=== PATIENT | male | born 1940 | race Caucasian/White ===

== ENCOUNTER 2020-03-05 13:16 | Emergency (ER) | payer OTHER, MEDICARE ==
[2020-03-05 13:27] VITALS: BP 134/70
[2020-03-05 14:11] LABS: BASO % 0.5 % (0.0-1.0); EOS # 0.1 10*3/uL (0.0-0.4); EOS % 1.6 % (1.0-4.0); HEMATOCRIT 35.3 % (42.0-52.0); LYMPH # 0.5 10*3/uL (1.3-4.4); LYMPH % 8.4 % (27.0-41.0); MEAN CORPUSCULAR HGB 28.9 pg (27.0-31.0); MEAN CORPUSCULAR HGB CONC 32.9 g/dl (33.0-37.0); MEAN PLATELET VOLUME 9.8 fl (9.6-12.3); MONO # 0.9 10*3/uL (0.1-1.0); MONO % 15.4 % (3.0-9.0); NEUT # 4.2 10*3/uL (2.3-7.9); NEUT % 73.7 % (47.0-73.0); PLATELET COUNT AUTOMATED 171 10*3/uL (130-400); RED BLOOD COUNT 4.01 10*6/uL (4.50-5.90); WHITE BLOOD COUNT 5.7 10*3/uL (4.8-10.8)
[2020-03-05 14:21] LABS: ACT PARTIAL THROMBO TIME 43.5 SECONDS (20.0-32.1); INTERNATIONAL NORM RATIO 3.4 (2.0-3.5)
[2020-03-05 14:30] LABS: ALBUMIN 3.1 gm/dl (3.1-4.5); ALKALINE PHOSPHATASE 146 U/L (45-117); BUN 12 mg/dl (7-24); CHLORIDE 99 mmol/L (98-107); CREATININE 0.71 mg/dL (0.70-1.30); POTASSIUM 4.1 mmol/L (3.5-5.1); SGOT/AST 14 IU/L (3-35); SGPT/ALT 25 U/L (12-78); SODIUM 132 mmol/L (136-145); TOTAL PROTEIN 6.1 gm/dL (6.4-8.2)
== END 2020-03-05 16:41 | disposition home or self-care (01) ==
LOC: ED 13:16
PROVIDERS: Emergency Medicine
DX: S20.212A Contusion of left front wall of thorax, initial encounter (principal); M54.2 Cervicalgia; R10.9 Unspecified abdominal pain; I48.91 Unspecified atrial fibrillation; E78.00 Pure hypercholesterolemia, unspecified; I10 Essential (primary) hypertension; Z88.0 Allergy status to penicillin; Z91.040 Latex allergy status; V43.52XA Car driver injured in collision with other type car in traffic accident, initial encounter; Y93.89 Activity, other specified; Y92.89 Other specified places as the place of occurrence of the external cause; Y99.8 Other external cause status

== ENCOUNTER 2020-03-11 18:42 | Inpatient (IN) | payer MEDICARE ==
[~2020-03-11] VITALS: Ht 177.8 cm; Wt 78.9 kg
[2020-03-11 18:45] VITALS: BP 117/64
[2020-03-11 20:00] VITALS: BP 132/70
[2020-03-11 20:10] LABS: BASO % 0.3 % (0.0-1.0); EOS # 0.1 10*3/uL (0.0-0.4); EOS % 1.3 % (1.0-4.0); HEMATOCRIT 35.9 % (42.0-52.0); LYMPH # 0.4 10*3/uL (1.3-4.4); LYMPH % 4.8 % (27.0-41.0); MEAN CELL VOLUME 90.7 fl (80.0-94.0); MEAN CORPUSCULAR HGB 29.3 pg (27.0-31.0); MEAN CORPUSCULAR HGB CONC 32.3 g/dl (33.0-37.0); MEAN PLATELET VOLUME 10.2 fl (9.6-12.3); MONO # 0.7 10*3/uL (0.1-1.0); MONO % 8.9 % (3.0-9.0); NEUT # 6.2 10*3/uL (2.3-7.9); NEUT % 83.5 % (47.0-73.0); PLATELET COUNT AUTOMATED 162 10*3/uL (130-400); RED BLOOD COUNT 3.96 10*6/uL (4.50-5.90); RED CELL DISTRI WIDTH 15.2 % (0-14.5); WHITE BLOOD COUNT 7.4 10*3/uL (4.8-10.8)
[2020-03-11 20:21] LABS: ACT PARTIAL THROMBO TIME 35.3 SECONDS (20.0-32.1); INTERNATIONAL NORM RATIO 2.3 (2.0-3.5)
[2020-03-11 20:27] LABS: ALBUMIN 2.9 gm/dl (3.1-4.5); ALKALINE PHOSPHATASE 140 U/L (45-117); BUN 17 mg/dl (7-24); CHLORIDE 105 mmol/L (98-107); CPK 77 U/L (39-308); CREATININE 0.73 mg/dL (0.70-1.30); POTASSIUM 4.2 mmol/L (3.5-5.1); SGOT/AST 21 IU/L (3-35); SGPT/ALT 36 U/L (12-78); SODIUM 138 mmol/L (136-145); TOTAL PROTEIN 6.2 gm/dL (6.4-8.2)
[2020-03-11 20:29] LABS: TROPONIN I < 0.015 ng/ml (<0.045)
--- NOTE | 2020-03-11 21:20 | NUR ---
TRIED TO AMBULATE PT PER DR. MERRITT'S ORDER. PT. ABLE TO STAND BUT UNABLE TO AMBULATE.
[2020-03-11 22:00] VITALS: BP 149/76
[2020-03-11 22:10] VITALS: BP 132/70
--- NOTE | 2020-03-11 22:10 | NUR ---
Time: 2209 A 79 year old MALE admitted to 5E under services of TAYA VAZQUEZ DO. Pt. arrived via stretcher from ER. Chief complaint: FALL. NO OPEN WOUNDS. CONTUSION TO RIGHT FLANK. NAKIA GOMEZ
--- NOTE | 2020-03-11 22:26 | NUR ---
NORCO ADMINISTERED FOR PT C/O 04/06 RIGHT HIP PAIN. WILL MONITOR AND REASSESS.
[2020-03-11] MEDS ORDERED: OXYBUTYNIN5 MG PO (22:36)
[2020-03-11] MEDS ORDERED: ACETAMINOPHEN COD (22:36)
[2020-03-11] MEDS ORDERED: METOPROLOL25 MG PO (22:36)
[2020-03-11] MEDS ORDERED: METOCLOPRAMIDE10 M1 PO (22:37)
[2020-03-11] MEDS ORDERED: ANORO ELLIPTA1 EACH INH (22:37)
[2020-03-11] MEDS ORDERED: POTASSIUM CHLO20 ME4 PO (22:38)
[2020-03-11] MEDS ORDERED: ESCITALOPRAM OX10 MG PO (22:38)
[2020-03-11] MEDS ORDERED: OMEPRAZOLE MAGN20 MG PO (22:39)
[2020-03-11] MEDS ORDERED: Carafate1 GM PO (22:39)
[2020-03-11] MEDS ORDERED: LISINOPRIL20 MG PO (22:39)
[2020-03-11] MEDS ORDERED: SIMVASTATIN40 MG PO (22:40)
--- NOTE | 2020-03-11 23:25 | NUR ---
PT STATES NORCO WAS EFFECTIVE IN RELIEVING PAIN TO A 5, BUT IS STILL COMPLAINING OF SIGNIFICANT PAIN. WILL ADMINISTER MORPHINE AT THIS TIME.
[2020-03-12] VITALS: BP 138/76
--- NOTE | 2020-03-12 00:20 | NUR ---
PT ASLEEP AT THIS TIME. NO S/S OF DISTRESS NOTED. RESPIRATIONS EASY AND NONLABORED.
[2020-03-12 06:09] LABS: BASO % 0.5 % (0.0-1.0); EOS # 0.2 10*3/uL (0.0-0.4); EOS % 1.7 % (1.0-4.0); HEMATOCRIT 32.4 % (42.0-52.0); LYMPH # 0.4 10*3/uL (1.3-4.4); MEAN CELL VOLUME 89.3 fl (80.0-94.0); MEAN CORPUSCULAR HGB 28.9 pg (27.0-31.0); MEAN CORPUSCULAR HGB CONC 32.4 g/dl (33.0-37.0); MEAN PLATELET VOLUME 10.7 fl (9.6-12.3); MONO # 0.7 10*3/uL (0.1-1.0); MONO % 8.4 % (3.0-9.0); NEUT # 7.4 10*3/uL (2.3-7.9); NEUT % 83.9 % (47.0-73.0); PLATELET COUNT AUTOMATED 140 10*3/uL (130-400); RED BLOOD COUNT 3.63 10*6/uL (4.50-5.90); RED CELL DISTRI WIDTH 15.2 % (0-14.5); WHITE BLOOD COUNT 8.8 10*3/uL (4.8-10.8)
[2020-03-12 06:23] LABS: INTERNATIONAL NORM RATIO 2.6 (2.0-3.5)
[2020-03-12 06:26] LABS: BUN 14 mg/dl (7-24); CHLORIDE 105 mmol/L (98-107); POTASSIUM 3.6 mmol/L (3.5-5.1); SODIUM 135 mmol/L (136-145)
[2020-03-12 06:28] LABS: CREATININE 0.57 mg/dL (0.70-1.30)
[2020-03-12 08:00] VITALS: BP 142/79
--- NOTE | 2020-03-12 08:00 | NUR ---
MORNING ASSESSMENT COMPLETED. NO COMPLAINTS VOICED AT THIS TIME.
[2020-03-12 12:00] VITALS: BP 88/68
[2020-03-12 12:34] VITALS: BP 100/58
[2020-03-12 16:00] VITALS: BP 102/62
[2020-03-12 20:00] VITALS: BP 148/65
--- NOTE | 2020-03-12 20:08 | NUR ---
PATIENT HAS C/O 6/10 PAIN TO CHEST AND RT SIDE/HIP, GIVEN MORPHINE PER REQUEST PER PRN ORDER, BP 140/58
--- NOTE | 2020-03-12 21:00 | NUR ---
MORPHINE EFFECTIVE FOR PAIN PER PT
[2020-03-13] VITALS: BP 153/75
--- NOTE | 2020-03-13 00:17 | NUR ---
MORPHINE GIVEN FOR C/O PAIN TO RT HIP AND RT HEEL, HEELS ELEVATED AND PATIENT REPOSITIONED IN BED. STATES HEEL IS ALREADY FEELING BETTER, HEEL IS PINK BUT NOT MUSHY/NO OPEN AREA. CALL LIGHT IN REACH
--- NOTE | 2020-03-13 01:00 | NUR ---
PATIENT RESTING WITH EYES CLOSED, EASY AND REGULAR RESPIRATIONS ON 2L NC; MORPHINE APPEARS EFFECTIVE.
[2020-03-13 06:34] LABS: BUN 12 mg/dl (7-24); CHLORIDE 102 mmol/L (98-107); CREATININE 0.55 mg/dL (0.70-1.30); POTASSIUM 3.6 mmol/L (3.5-5.1); SODIUM 133 mmol/L (136-145)
[2020-03-13 06:51] LABS: INTERNATIONAL NORM RATIO 2.5 (2.0-3.5)
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
[2020-03-13 08:00] VITALS: BP 146/61
--- NOTE | 2020-03-13 08:00 | NUR ---
PHYSICAL THERAPY Screen and PT orders received. Will follow. Thank you. Ramsey Quevedo SPT Isidra Brenner PT
--- NOTE | 2020-03-13 08:07 | NUR ---
Nursing screen and occupational therapy order received. Will follow up with patient for completion of an OT evaluation. Thank you. Lulu Macias, OTR/L
--- NOTE | 2020-03-13 09:28 | NUR ---
Occupational Therapy evaluation completed on five with full evaluation to follow. Recommend occupational therapy per plan of care and SNF upon discharge. Thank you for this referral. Lulu Macias OTR/L
--- NOTE | 2020-03-13 09:29 | NUR ---
PHYSICAL THERAPY Physical Therapy Observation evaluation completed on 5E with full evaluation to follow. Recommend physical therapy per plan of care and SNF upon discharge. Thank you for this referral. Cheyenne Diez,PT,DPT
--- NOTE | 2020-03-13 09:30 | NUR ---
PT IN TO WORK WITH PT.
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
--- NOTE | 2020-03-13 10:48 | NUR ---
Attempted to reach daughterKaryn, regarding discharge planning with no success. Left voicemail. Awaiting return call.
--- NOTE | 2020-03-13 11:40 | NUR ---
COVID TEST WILL BE REQUIRED FOR ADMISSION TO SNF. AWAITING RETURN CALL FROM PATIENTS FAMILY ON WHICH SNF THEY WOULD LIKE TO REFERRAL TO BE SENT.
[2020-03-13 12:00] VITALS: BP 122/55
--- NOTE | 2020-03-13 12:42 | NUR ---
DONATIONS ATTENDANT RECEIVED CALL FROM STATING SHE HAD JUST SPOKEN TO THE PATIENTS DAUGHTER AND DAUGHTER REQUESTED A CALL BACK. DONATIONS ATTENDANT CALLED PATIENTS DAUGHTER JOVITA AND EXPLAINED THE RECOMMENDATION FROM PT/OT. SHE IS AGREEABLE. DONATIONS ATTENDANT PROVIDED HER WITH OPTIONS FOR SNF. SHE AGREED TO HAVE REFERRAL SENT TO [facility] FOR REVIEW. DONATIONS ATTENDANT FAXED REFERRAL TO [facility]. PATIENT WILL NEED TO BE ACCEPTED. PATIENT WILL NEED COVID TESTING. WILL NEED 3RD NIGHT STAY (03/14/2020).
--- NOTE | 2020-03-13 13:23 | NUR ---
NORCO ADMINISTERED FOR PT C/O RIGHT HIP AND SHOULDER PAIN RATED A 6/10. WILL CONTINUE TO MONITOR AND REASSESS.
--- NOTE | 2020-03-13 13:54 | NUR ---
PT LAYING IN BED WITH EYES CLOSED. RESPIRATIONS EASY AND NONLABORED. NO DISTRESS NOTED. NORCO APPEARS EFFECTIVE.
--- NOTE | 2020-03-13 15:15 | NUR ---
CRIME SCENE ANALYST RECEIVED CALL FROM STATING SHE HAD JUST SPOKEN TO THE PATIENTS DAUGHTER AND DAUGHTER REQUESTED A CALL BACK. CRIME SCENE ANALYST CALLED PATIENTS DAUGHTER JOVITA AND EXPLAINED THE RECOMMENDATION FROM PT SHE IS AGREEABLE. CRIME SCENE ANALYST PROVIDED HER WITH OPTIONS FOR SNF. SHE AGREED TO [facility] REFERRAL SENT TO [facility] FOR REVIEW. CRIME SCENE ANALYST FAXED REFERRAL TO [facility]. PATIENT WILL NEED TO BE ACCEPTED. PATIENT WILL NEED COVID TESTING. WILL NEED 3 NIGHT INPATIENT STAY. PATIENT CAN ADMIT TO ON 03/16/2020.
[2020-03-13 16:00] VITALS: BP 112/57
--- NOTE | 2020-03-13 19:53 | NUR ---
MEDICATED WITH NORCO FOR C/O RIGHT HIP/RIGHT SIDE PAIN RATED A 6/10.
[2020-03-13 20:00] VITALS: BP 111/74
--- NOTE | 2020-03-13 20:30 | NUR ---
RESTING IN BED; VOICES NO FURTHER C/O PAIN AT THIS TIME. NORCO EFFECTIVE. CALL LIGHT WITHIN REACH. BED ALARM ON.
[2020-03-14] VITALS: BP 122/60
--- NOTE | 2020-03-14 02:11 | NUR ---
MEDICATED WITH NORCO FOR C/O PAIN.
--- NOTE | 2020-03-14 03:15 | NUR ---
RESTING IN BED WITH EYES CLOSED; NORCO APPARENTLY EFFECTIVE.
[2020-03-14 06:22] LABS: BASO % 0.3 % (0.0-1.0); EOS # 0.3 10*3/uL (0.0-0.4); EOS % 4.4 % (1.0-4.0); HEMATOCRIT 28.8 % (42.0-52.0); LYMPH # 0.4 10*3/uL (1.3-4.4); LYMPH % 5.4 % (27.0-41.0); MEAN CELL VOLUME 89.4 fl (80.0-94.0); MEAN CORPUSCULAR HGB 29.2 pg (27.0-31.0); MEAN CORPUSCULAR HGB CONC 32.6 g/dl (33.0-37.0); MEAN PLATELET VOLUME 10.9 fl (9.6-12.3); MONO # 0.9 10*3/uL (0.1-1.0); MONO % 13.1 % (3.0-9.0); NEUT # 5.4 10*3/uL (2.3-7.9); NEUT % 76.4 % (47.0-73.0); PLATELET COUNT AUTOMATED 115 10*3/uL (130-400); RED BLOOD COUNT 3.22 10*6/uL (4.50-5.90); RED CELL DISTRI WIDTH 14.9 % (0-14.5); WHITE BLOOD COUNT 7.1 10*3/uL (4.8-10.8)
[2020-03-14 06:35] LABS: BUN 12 mg/dl (7-24); CHLORIDE 101 mmol/L (98-107); POTASSIUM 3.7 mmol/L (3.5-5.1); SODIUM 133 mmol/L (136-145)
[2020-03-14 08:00] VITALS: BP 128/66
--- NOTE | 2020-03-14 11:13 | NUR ---
DR. ORDAZ REQUESTED FOR OXYGEN TO BE REMOVED, AND MONITOR PATIENT ON ROOM AIR. REMOVED 2 LITERS OXYGEN, PT IN TO SEE PATIENT. WILL CONTINUE TO MONITOR
--- NOTE | 2020-03-14 11:25 | NUR ---
PHYSICAL THERAPY Patient seen this am 1:1 for therapy visit and was supine in bed upon therapist arrival. Patient identified by name / and reports 7/10 R hip pain. Patient originally presented with continuos O2-2L, however nurse arrived and removed O2 at this time stating he did not need to use it anymore. Patient was very pleasant this morning while transfering supine to sit EOB with MOD A, tolerating several minutes static EOB sit, SBA x 1. Patient completed sit to stand transfer, MIN A with use of wh walker standing support, performing SPT to bedside chair, including several forward / side steps, MIN A. Patient recorded SpO2 89%, HR 92 bpm following SPT and after brief seated rest returned to 93%, HR 85 bpm. Patient also instructed / performed seated B LE therex, all planes x 10 reps each to increase LE strength and remained in bedside chair with call light, tray table, telephone, body alarm for safety. Will continue per POC as tolerated, total treatment time 19 minutes. Chepe Gloria, VEHICLE DYNAMICS ENGINEER
--- NOTE | 2020-03-14 11:53 | NUR ---
PT COMPLAIN OF PAIN IN HIP, NORCO GIVEN. WILL MONITOR FOR EFFECTIVENESS.
[2020-03-14 12:00] VITALS: BP 109/56
--- NOTE | 2020-03-14 12:49 | NUR ---
Pt was seen for 15 minutes in OT beginning with supine to EOB with Max A. Sit to stands at EOB with Min A followed by transfer to bedside chair with Min A. No complaints & bed alarm activated for safety. All needs within reach. Continue with OT POC. Pat CACERES
[2020-03-14 16:00] VITALS: BP 101/42
[2020-03-14 20:00] VITALS: BP 121/62
--- NOTE | 2020-03-14 20:10 | NUR ---
NORCO ADMINISTERED FOR PT C/O 02/03 PAIN IN THE RIGHT SHOULDER/HIP R/T FALL A COUPLE OF DAYS AGO. PT STATES HE IS SORE. WILL MONITOR AND REASSESS.
--- NOTE | 2020-03-14 20:40 | NUR ---
PT ASLEEP AT THIS TIME. NO S/S OF DISTRESS. NORCO APPEARS EFFECTIVE.
--- NOTE | 2020-03-14 23:33 | NUR ---
24 HOUR CHART CHECK COMPLETE.
[2020-03-15] VITALS: BP 105/58
--- NOTE | 2020-03-15 01:54 | NUR ---
NORCO ADMINISTERED FOR PT C/O 01/04 RIGHT SHOULDER AND HIP PAIN. WILL MONITOR AND REASSESS.
--- NOTE | 2020-03-15 02:30 | NUR ---
PT ASLEEP AT THIS TIME. NORCO APPEARS EFFECTIVE.
[2020-03-15 06:24] LABS: BASO % 0.5 % (0.0-1.0); EOS # 0.3 10*3/uL (0.0-0.4); EOS % 5.3 % (1.0-4.0); LYMPH # 0.4 10*3/uL (1.3-4.4); MEAN CELL VOLUME 89.7 fl (80.0-94.0); MEAN CORPUSCULAR HGB 29.5 pg (27.0-31.0); MEAN CORPUSCULAR HGB CONC 32.9 g/dl (33.0-37.0); MEAN PLATELET VOLUME 10.5 fl (9.6-12.3); MONO # 0.8 10*3/uL (0.1-1.0); MONO % 13.8 % (3.0-9.0); NEUT # 4.4 10*3/uL (2.3-7.9); NEUT % 72.9 % (47.0-73.0); PLATELET COUNT AUTOMATED 129 10*3/uL (130-400); RED BLOOD COUNT 3.12 10*6/uL (4.50-5.90); RED CELL DISTRI WIDTH 14.8 % (0-14.5)
[2020-03-15 06:32] LABS: BUN 15 mg/dl (7-24); CHLORIDE 101 mmol/L (98-107); CREATININE 0.63 mg/dL (0.70-1.30); POTASSIUM 3.6 mmol/L (3.5-5.1); SODIUM 135 mmol/L (136-145)
[2020-03-15 06:50] LABS: INTERNATIONAL NORM RATIO 2.3 (2.0-3.5)
[2020-03-15 08:00] VITALS: BP 154/70
--- NOTE | 2020-03-15 09:10 | NUR ---
PHYSICAL THERAPY Patient seen this am 1:1 for therapy visit and was supine in bed upon therapist arrival. Patient identified by name / and reports 7/10 R hip / shoulder pain. Patient was pleasat this morning, transfering supine to sit EOB with MOD A x 1, demonstrating increased difficulty with R LE abduction during transfer. Patient completed sit to stand transfer, MIN A, then ambulated with use of wh walker, MIN A, 35'x 1, demonstrating very slow, cautious, "step to" gait pattern. Patient also very unsteady during 180 degree turn around and reported feeling mild light headedness. Patient instructed to take brief standing rest break upon return to bedside chair for < 20 seconds and was able to safely complete all gait ex this session. Patient remained in bedside chair with increased fatigue, call light, tray table, telephone and body alarm for safety. Will continue per POC as tolerated, total treatment time 16 minutes. Chepe Gloria, GENERAL MANAGER IN TRAINING
--- NOTE | 2020-03-15 09:27 | NUR ---
PT REQUESTED PO NORCO PER PRN ORDER FOR C/O RIGHT HIP PAIN. RATES PAIN 8/10. WILL MONITOR EFFECTIVENESS.
--- NOTE | 2020-03-15 10:27 | NUR ---
NORCO EFFECTIVE PER PT. WILL CONTINUE TO MONITOR.
--- NOTE | 2020-03-15 10:50 | NUR ---
IN TO SEE PATIENT.
--- NOTE | 2020-03-15 11:00 | NUR ---
CM in to see patient. No new needs or request at this time. When medically stable and his 3 night inpatient stay is met (tomorrow) [facility]. call worker person following for referral.
[2020-03-15 12:00] VITALS: BP 106/56
--- NOTE | 2020-03-15 12:36 | NUR ---
Pt was seen with OT x 23 minutes beginning with sit to stand from recliner required CGA & a cue for hand placement. Fxl mobility throughout room & to bathroom requiring CGA due to hx of falls. Transfer to commode CGA & Max A with toileting hygiene. Grooming with set up to end session. [address] & call light within reach. Continue with OT POC. Pat CONKLIN/Britton
--- NOTE | 2020-03-15 15:06 | NUR ---
PT REQUESTED PO NORCO PER PRN ORDER FOR C/O RIGHT HIP PAIN. RATES PAIN 02/03. WILL MONITOR EFFECTIVENESS. CALL LIGHT WITHIN REACH.
[2020-03-15 16:00] VITALS: BP 107/59
--- NOTE | 2020-03-15 16:06 | NUR ---
NORCO RELIEVING PAIN PER PT. WILL CONTINUE TO MONITOR.
[2020-03-15 20:00] VITALS: BP 107/49
--- NOTE | 2020-03-15 21:27 | NUR ---
NORCO ADMINISTERED FOR PT C/O RIGHT HIP/KNEE PAIN RATED A 8/10. WILL CONTINUE TO MONITOR AND REASSESS.
--- NOTE | 2020-03-15 22:20 | NUR ---
PT RESTING AT THIS TIME. NO S/S OF DISTRESS NOTED.
[2020-03-16] VITALS: BP 108/40
[2020-03-16 06:28] LABS: BUN 14 mg/dl (7-24); CHLORIDE 101 mmol/L (98-107); CREATININE 0.57 mg/dL (0.70-1.30); POTASSIUM 3.5 mmol/L (3.5-5.1); SODIUM 136 mmol/L (136-145)
[2020-03-16 06:30] LABS: INTERNATIONAL NORM RATIO 2.4 (2.0-3.5)
[2020-03-16 06:33] LABS: BASO % 0.6 % (0.0-1.0); EOS # 0.2 10*3/uL (0.0-0.4); EOS % 4.1 % (1.0-4.0); HEMATOCRIT 28.1 % (42.0-52.0); LYMPH # 0.4 10*3/uL (1.3-4.4); LYMPH % 7.6 % (27.0-41.0); MEAN CELL VOLUME 89.5 fl (80.0-94.0); MEAN CORPUSCULAR HGB 29.6 pg (27.0-31.0); MEAN CORPUSCULAR HGB CONC 33.1 g/dl (33.0-37.0); MONO # 0.8 10*3/uL (0.1-1.0); NEUT # 3.4 10*3/uL (2.3-7.9); NEUT % 70.1 % (47.0-73.0); PLATELET COUNT AUTOMATED 139 10*3/uL (130-400); RED BLOOD COUNT 3.14 10*6/uL (4.50-5.90); WHITE BLOOD COUNT 4.9 10*3/uL (4.8-10.8)
--- NOTE | 2020-03-16 07:57 | NUR ---
PATIENTS COVID HAS RETURNED IF MEDICALLY STABLE PATIENT CAN DISCHARGE TO [facility] TODAY.
[2020-03-16 08:00] VITALS: BP 150/64
--- NOTE | 2020-03-16 08:51 | NUR ---
GEOSCIENCE SPECIALIST COMPLETED HENS.
--- NOTE | 2020-03-16 09:49 | NUR ---
NORCO GIVEN PER PRN ORDER FOR C/O RIGHT HIP PAIN. RATES PAIN 8/10. WILL MONITOR EFFECTIVENESS.
--- NOTE | 2020-03-16 10:37 | NUR ---
IN TO SEE PATIENT.
--- NOTE | 2020-03-16 10:41 | NUR ---
PHYSICAL THERAPY PT SUPINE IN BED UPON ARRIVAL. PT IDENTIFIED BY NAME AND . PT AGREED TO ALL PHYSICAL THERAPY TREATMENT THIS VISIT. PT PERFORMED SUPINE TO SIT WITH Nuria AND VC'S FOR PROPER TECHNIQUE. PT PERFORMED STS FROM EOB TO FWW WITH CGA AND VC'S FOR SAFETY. PT GAIT TRAINED 25FT X1 AND 10FT X2 WITH FWW AND CGA, WITH VC'S TO FOCUS ON ONE OBJECT TO DECREASE C/O DIZZINESS. PT PERFOREMS STS TO EOB WITH CGA AND VC'S FOR SAFETY. PT PERFORMES SIT TO SUPINE WITH Nuria WITH BLE. PT REPORTED 7/10 PAIN IN R HIP THIS VISIT. PT SUPINE IN BED WITH CALL LIGHT IN HAND AT END OF SESSION WITH NO OTHER NEEDS REPORTED. PT SEEN 1:1 17MIN. STEPHEN RANDOLPH PTA.
[2020-03-16] MEDS ORDERED: WARFARIN SOD5 MG PO (11:26)
--- NOTE | 2020-03-16 11:48 | NUR ---
YEAST DISTILLER WAS NOTIFIED OF PATIENT DISCHARGE. YEAST DISTILLER SPOKE WITH DEDRICK CRONIN. YEAST DISTILLER ARRANGED FOR A 4PM TRANSPORT TO [facility]. YEAST DISTILLER NOTIFIED [facility], AND PARISH DAUGHTER JOVITA OF TRANSPORT TIME. YEAST DISTILLER WILL FAX DISCHARGE ORDERS TO [facility].
--- NOTE | 2020-03-16 11:52 | NUR ---
VASCULAR SONOGRAPHER WAS NOTIFIED OF PATIENT DISCHARGE. VASCULAR SONOGRAPHER SPOKE WITH DEDRICK CRONIN. VASCULAR SONOGRAPHER ARRANGED FOR A 3PM TRANSPORT TO [place] [facility]. VASCULAR SONOGRAPHER NOTIFIED ERIC SANDS, SHANKAR, AND PATIENTS HUGO OF TRANSPORT TIME. VASCULAR SONOGRAPHER WILL FAX DISCHARGE ORDERS TO [facility].
[2020-03-16 12:00] VITALS: BP 152/70
--- NOTE | 2020-03-16 16:11 | NUR ---
AMBUL[facility] HERE TO TRANSPORT PATIENT TO [facility].
--- NOTE | 2020-03-16 16:27 | NUR ---
NURSE TO NURSE REPORT GIVEN AT THIS TIME.
== END 2020-03-16 16:11 | disposition other institution (70) | DRG 605 ==
LOC: ED 18:42 → EDHOLD 21:35 → 5E 21:35
PROVIDERS: Emergency Medicine; Hospitalist; Internal Medicine; ADMIT Internal Medicine
DX: S70.01XA Contusion of right hip, initial encounter (principal); E87.1 Hypo-osmolality and hyponatremia; E44.0 Moderate protein-calorie malnutrition; D68.9 Coagulation defect, unspecified; R26.2 Difficulty in walking, not elsewhere classified; J44.9 Chronic obstructive pulmonary disease, unspecified; K21.9 Gastro-esophageal reflux disease without esophagitis; R73.9 Hyperglycemia, unspecified; I48.91 Unspecified atrial fibrillation; Z96.642 Presence of left artificial hip joint; S00.93XA Contusion of unspecified part of head, initial encounter; W10.1XXA Fall (on)(from) sidewalk curb, initial encounter; S20.219A Contusion of unspecified front wall of thorax, initial encounter; I10 Essential (primary) hypertension; D64.9 Anemia, unspecified; E78.5 Hyperlipidemia, unspecified; N40.0 Benign prostatic hyperplasia without lower urinary tract symptoms; F32.9 Major depressive disorder, single episode, unspecified; Z88.0 Allergy status to penicillin; Z82.49 Family history of ischemic heart disease and other diseases of the circulatory system; Z90.49 Acquired absence of other specified parts of digestive tract; Z03.818 Encounter for observation for suspected exposure to other biological agents ruled out; Z68.24 Body mass index [BMI] 24.0-24.9, adult; Y93.89 Activity, other specified; Y92.89 Other specified places as the place of occurrence of the external cause; Y99.8 Other external cause status